=== PATIENT | female | born 1955 | race Hispanic/Latino ===

== ENCOUNTER 2022-01-09 09:07 | Observation (INO) | payer OTHER ==
--- OUTSIDE RECORDS SUMMARY | 2022-01-09 09:11 | XMS REPORT | Continuity of Care Document ---
:1955 Author Organization [facility] t Address [address] [place] [address] Dr. Greg[address] [place] [address] Care Team Providers Name Role Phone Rolando CASAS Primary Care Physician Unavailable CHAPINCITO Attending Clinician Unavailable Chapincito BEY Attending Clinician CHAPINCITO Admitting Clinician Unavailable Payers Payer Name Policy Type Policy Number Effective Date Expiration Date S ource HUMA[employer] CHOICE [id number] 2022 00:00:00 Problems Condition Condition Condition Status Onset Resolution Last Treating Co mments Source Name Details Category Date Date Treatment Clinician Date Marijuana Marijuana Disease Active Uni vers smoker smoker 8-10 ity of 00:: [address] BOUCHRA BOUCHRA Disease Active Univers (obstructi (obstructi 7-13 it y of ve sleep ve sleep 00:00: [place] apnea) apnea) [facility] HTN HTN Disease Active Univers (hypertens (hypertens 7-13 it y of ion) ion) 00:: [address] COPD COPD Disease Active Univers (chronic (chronic 7-13 [place] Medical pulmonary pulmonary Bran ch disease) disease) Hypothyroi Hypothyroi Disease Active U nivers dism dism 7-13 ity of 00:: [address] Depression Depression Disease Active U nivers 7-13 ity of 00:00: [address] Type 2 Type 2 Disease Active Univers diabetes diabetes 7-13 ity of mellitus mellitus 00:00: [address] Allergies, Adverse Reactions, Alerts Allergy Allergy Status Severity Reaction(s) Onset Inactive Treating Comm ents Source Name Type Date Date Clinician NO KNOWN Drug Active Univers ALLERGIE Class ity of S [facility] Social History Social Habit Start Date Stop Date Quantity Comments Source History of tobacco 2005-07-01 Cigarette Smoker University of use 00:00:00 [facility] Exposure to Not sure [facility] SARS-CoV-2 (event) [facility] Cigarettes smoked 2015-07-01 2015-07-01 Univers ity of current (pack per 00:00:00 00:00:00 [facility] ) - Reported Branch Cigarette 2015-07-01 2015-07-01 University of pack-years 00:00:00 00:00:00 [facility] Sex Ass[birth year] Universit y of 00:00:00 00:00:00 [facility] Smoking Status Start Date Stop Date Source Former smoker 2015-07-01 00:00:00 2015-07-01 [facility] Medications Ordered Filled Start Stop Current Ordering Indication Dosage Frequency Signature Comments Components Source Medication Medication Date Date Medication? Clinician (SIG) Name Name metoprolol Yes 25mg Take 25 mg U nivers succinate 8-11 by mouth 2 ity of XL (TOPROL 10:19: (two) [place] XL) 25 mg 44 times Medical 24 hr daily. Branch tablet ALPRAZolam Yes 1mg Take 1 mg Un diamond (XANAX) 1 8-11 by mouth 2 ity of mg tablet 10:19: (two) [place] 44 times Medical daily. Branch PAROXETINE Yes Take by Uni vers HCL (PAXIL 8-11 mouth. ity of ORAL) 10:19: [address] Branch fluticasone Yes Inhale. Uni vers propion/jose m 8-11 ity of meterol 10:19: [place] [facility] IN[facility] Branch INHALE) busPIRone Yes 10mg Take 10 mg Un diamond 10 mg 8-11 by mouth 2 ity of tablet 10:19: (two) [place] 44 times Medical daily. Branch Levothyroxi Yes Take by Un diamond ne 100 mcg 8-11 mouth. ity of capsule 10:19: [place] 44 Medical Branch metFORMIN Yes 500mg Take 500 Uni vers 500 mg 8-11 mg by ity of tablet 10:19: mouth 2 [place] 44 (two) Medical times Branch daily with meals. ibuprofen Yes [id number] 600mg Take 1 Univers 600 mg 8-11 tablet by ity of tablet 00:00: mouth [place] 00 every 6 Medical (six) Branch hours as needed for Pain (scale 1-3). ondansetron Yes 8mg Take 1 Tab Univers (ZOFRAN 9-29 by mouth ity of ODT) 8 mg 00:00: every 8 [place] disintegrat 00 (eight) Medic al ing tablet hours as Branc h needed for Nausea and Vomiting (N/V). Vital Signs Vital Name Observation Time Observation Value Comments Source Systolic blood 2022-01-05 15:35:00 127 [facility]Hg[facility] Diastolic blood 2022-01-05 15:35:00 81 mm[facility]Hg[facility] rate 2022-01-05 15:35:00 87 /min Universi [facility] Body temperature 2022-01-05 15:35:00 36.06 [facility] Procedures This patient has no known procedures. Encounters Start End Encounter Admission Attending Care Care Encounter Source Date/Time Date/Time Type Type Clinicians Facility Department ID 2022-01-06 Inpatient R CHAPINCITO [facility] MARILYN [id number] Univers 13:29:58 [facility] 2021-12-15 [facility] [id number] 14:34:01 [facility] 2022-01-05 2022-01-05 Office [place] [facility] [id number] Univers 10:30:00 11:41:31 Visit David MCCALLUM [id number] i ty [facility] [id number] [place] [id number] [place] [id number] Branch Results This patient has no known results.
[2022-01-09] MEDS ORDERED: AZITHROMYCIN 500 MG INJ IVPB ONE (09:40)
[2022-01-09] MEDS ORDERED: MORPHINE 4 MG/ML SYR ONE (09:40)
[2022-01-09] MEDS ORDERED: CEFTRIAXONE 1000 MG/VIAL ONE ×2 (09:40→19:49)
[2022-01-09] MEDS ORDERED: ONDANSETRON 4 MG/2 ML VIAL ONE (09:40)
[2022-01-09] MEDS ORDERED: NA CHLORIDE 0.9% 2,000 ML ONE (09:41)
[2022-01-09] MEDS ORDERED: NA CHLORIDE 0.9% 250 ML ONE (09:41)
--- NOTE | 2022-01-09 09:42 | RAD REPORT ---
EXAM DESCRIPTION: Jamia Single View01/09/2022 9:31 am CLINICAL HISTORY: sob COMPARISON: 2020 FINDINGS: The lungs appear clear of acute infiltrate. The heart is normal size IMPRESSION: No acute abnormalities displayed
[2022-01-09 09:51] LABS: MPV 7.6 fL (7.6-11.3); Protime INR 1.06
[2022-01-09 10:00] LABS: Absolute Lymphocytes (CBC) 2.2 K/uL (0.7-4.9); Hematocrit 43.3 % (36.0-45.0); Lymphocytes % 31.3 % (15.3-44.8); RBC Red Blood Cell Count 4.98 M/uL (3.86-4.86)
[2022-01-09 10:29] LABS: Albumin 4.7 g/dL (3.4-5.0); Bilirubin Direct 0.2 mg/dL (0-0.2); Bilirubin Total 0.6 mg/dL (0.2-1.0); Magnesium 1.7 mg/dL (1.8-2.4); Potassium 3.5 mmol/L (3.5-5.1); Protein, Total 8.9 g/dL (6.4-8.2); Troponin High Sensitivity 5.2 pg/mL (<58.9)
[2022-01-09] MEDS ORDERED: NA CHLORIDE 0.9% 1,000 ML ONE (10:32)
[2022-01-09] MEDS ORDERED: MAGNESIUM SULFATE 1 gm IVPB 1 GM/100 ML BAG IV ONE (10:52)
--- NOTE | 2022-01-09 10:57 | RAD REPORT ---
EXAM DESCRIPTION: CT - Head Brain Wo Cont - 01/09/2022 10:48 am CLINICAL HISTORY: Headache COMPARISON: None. TECHNIQUE: Computed axial tomography of the head was obtained. IV contrast was not requested. All CT scans are performed using dose optimization technique as appropriate and may include automated exposure control or mA/KV adjustment according to patient size. FINDINGS: An intracranial bleed is not seen . The ventricles are normal in caliber. No significant hypodense areas within the brain No extra-axial fluid collection is noted. Fluid within the sinuses/ mastoids is not seen. IMPRESSION: No acute intracranial abnormality is seen. If patient's symptoms persist MRI of the bra in would be recommended.
--- NOTE | 2022-01-09 11:03 | RAD REPORT ---
EXAM DESCRIPTION: CT - Chest For Pe Angio - 01/09/2022 10:49 am CLINICAL HISTORY: Shortness of breath COMPARISON: None. TECHNIQUE: Dynamically enhanced axial 3 mm thick images of the chest were obtained during administra tion of <100> mL Isovue 370 IV contrast. Coronal and oblique reconstruction images were generated and reviewed. Exam utilizes a protocol for optimal evaluation of pulmonary arterial tree. Maximum intensity projections 3D imaging was utilized All CT scans are performed using dose optimization technique as appropriate and may include automated exposure control or mA/KV adjustment according to patient size. FINDINGS: A pulmonary embolus is not seen. A thoracic aortic aneurysm is not noted. A pleural effusion is not seen. A pericardial effusion is not seen. A lung consolidation is not present. Mild to moderate COPD IMPRESSION: Negative for a pulmonary embolism.
--- NOTE | 2022-01-09 11:54 | EDPHYS ---
Physician Documentation [facility] Name: Celeste Shay Age: 66 yrs Sex: Female : 1955 Arrival Date: 01/09/2022 Time: 09:10 Bed 5 Private MD: ED Physician Atif Enciso HPI: 01/09 09:19 This 66 yrs old Female presents to ER via Unassigned with complaints of kalpana Weakness, Nausea, Shortness Of Breath. 09:19 The patient has shortness of breath at rest. Onset: The symptoms/episode began/occurred kalpana 1 day(s) ago. Duration: The symptoms are continuous, and are steadily getting worse. The patient's shortness of breath has no apparent modifying factors. The patient or guardian reports cough, that is intermittent. Onset: The symptoms/episode began/occurred today. Modifying factors: The symptoms are alleviated by nothing. the symptoms are aggravated by activity. pain all over, sob. Associated signs and symptoms: Pertinent positives: non-productive cough, fever. Severity of symptoms: At their worst the symptoms were moderate in the emergency department the symptoms are unchanged. Associated signs and symptoms: Pertinent positives: nausea, rhinorrhea, sore throat. Historical: - Allergies: :29 No Known Allergies; vg1 - Home Meds: :29 Metformin Oral [Active]; Metoprolol Tartrate Oral [Active]; Buspirone Oral [Active]; vg1 paroxetine oral [Active]; Liver Detox [Active]; albuterol sulfate Oral [Active]; - PMHx: 09:29 Diabetes mellitus; Hypertensive disorder; Chronic obstructive lung disease; Anxiety; vg1 Bipolar disorder; - Immunization history:: Client reports receiving the 2nd dose of the Covid vaccine. - Social history:: Smoking status: Patient reports the use of cigarette tobacco products, smokes one pack cigarettes per day. - Family history:: not pertinent. ROS: 09:19 Constitutional: Negative for fever, chills, and weight loss, Eyes: Negative for injury, kalpana pain, redness, and discharge, ENT: Negative for injury, pain, and discharge, Neck: Negative for injury, pain, and swelling, Cardiovascular: Negative for chest pain, palpitations, and edema, Abdomen/GI: Negative for abdominal pain, nausea, vomiting, diarrhea, and constipation, Back: Negative for injury and pain, : Negative for injury, bleeding, discharge, and swelling, MS/Extremity: Negative for injury and deformity, Skin: Negative for injury, rash, and discoloration, Neuro: Negative for headache, weakness, numbness, tingling, and seizure, Psych: Negative for depression, anxiety, suicide ideation, homicidal ideation, and hallucinations, Allergy/Immunology: Negative for hives, rash, and allergies, Endocrine: Negative for neck swelling, polydipsia, polyuria, polyphagia, and marked weight changes, Hematologic/Lymphatic: Negative for swollen nodes, abnormal bleeding, and unusual bruising. 09:19 Respiratory: Positive for cough, shortness of breath. Exam: 09:19 Constitutional: This is a well developed, well nourished patient who is awake, alert, kalpana and in no acute distress. Head/Face: Normocephalic, atraumatic. Eyes: Pupils equal round and reactive to light, extra-ocular motions intact. Lids and lashes normal. Conjunctiva and sclera are non-icteric and not injected. Cornea within normal limits. Periorbital areas with no swelling, redness, or edema. ENT: Nares patent. No nasal discharge, no septal abnormalities noted. Tympanic membranes are normal and external auditory canals are clear. Oropharynx with no redness, swelling, or masses, exudates, or evidence of obstruction, uvula midline. Mucous membranes moist. Neck: Trachea midline, no thyromegaly or masses palpated, and no cervical lymphadenopathy. Supple, full range of motion without nuchal rigidity, or vertebral point tenderness. No Meningismus. Chest/axilla: Normal chest wall appearance and motion. Nontender with no deformity. No lesions are appreciated. Cardiovascular: Regular rate and rhythm with a normal S1 and S2. No gallops, murmurs, or rubs. Normal PMI, no JVD. No pulse deficits. Respiratory: Lungs have equal breath sounds bilaterally, clear to auscultation and percussion. No rales, rhonchi or wheezes noted. No increased work of breathing, no retractions or nasal flaring. Abdomen/GI: Soft, non-tender, with normal bowel sounds. No distension or tympany. No guarding or rebound. No evidence of tenderness throughout. Back: No spinal tenderness. No costovertebral tenderness. Full range of motion. Skin: Warm, dry with normal turgor. Normal color with no rashes, no lesions, and no evidence of cellulitis. MS/ Extremity: Pulses equal, no cyanosis. Neurovascular intact. Full, normal range of motion. Neuro: Awake and alert, GCS 15, oriented to person, place, time, and situation. Cranial nerves II-XII grossly intact. Motor strength 5/5 in all extremities. Sensory grossly intact. Cerebellar exam normal. Normal gait. Psych: Awake, alert, with orientation to person, place and time. Behavior, mood, and affect are within normal limits. 09:19 Cardiovascular: Rate: tachycardic, Rhythm: regular, Edema: is not appreciated, JVD: is not appreciated. 10:00 ECG was reviewed by the Attending Physician. [facility] Vital Signs: 09:25 BP 183 / 113; Pulse 100; Resp 20; Temp 98.4; Pulse Ox 100% ; Weight 70.76 kg; Height 5 vg1 ft. 2 in. (157.48 cm); Pain 6/10; 09:58 BP 133 / 89; Pulse 90; Resp 16; Pulse Ox 100% ; vg1 10:30 BP 117 / 99; Pulse 83; Resp 15; Pulse Ox 100% ; vg1 11:09 BP 130 / 109; Pulse 80; Resp 17; Pulse Ox 100% ; vg1 12:15 BP 153 / 79; Pulse 73; Resp 12; Pulse Ox 100% ; vg1 13:22 BP 127 / 72; Pulse 78; Resp 15; Pulse Ox 100% ; vg1 14:55 BP 123 / 64; Pulse 76; Resp 20; Pulse Ox 99% on R/A; ph 09:25 Body Mass Index 28.53 (70.76 kg, 157.48 cm) vg1 MDM: 09:13 Patient medically screened. [facility] 09:22 Differential diagnosis: bronchitis, flu, URI, viral Infection, bacterial infection, kalpana URI, bronchitis, pneumonia. Antibiotic administration: Rocephin and Zithromax given. Differential Diagnosis sepsis, flu. The patient's Wells Deep Vein Thrombosis Score was calculated as follows: Heart Rate >100 BPM (1.5 Pts) Total Score: 0-2 Pts- Low Risk. The patient's pulmonary embolism risk score was calculated as follows: the patients heart rate is greater than 100 beats per minute (1.5 Pts) Total Score: 0-2 points. This patient was found to be at low risk for a pulmonary embolism by using the Well's assessment criteria. Immunization status: Pneumococcal vaccine: Influenza vaccine: Data reviewed: vital signs, nurses notes, lab test result(s), EKG, radiologic studies, plain films. Data interpreted: secured entrance monitor: rate is 105 beats/min, rhythm is regular, Pulse oximetry: on room air is 99 %. Test interpretation: by ED physician or midlevel provider: ECG, plain radiologic studies. Counseling: I had a detailed discussion with the patient and/or guardian regarding: the historical points, exam findings, and any diagnostic results supporting the discharge/admit diagnosis, lab results, radiology results, the need for outpatient follow up. 01/09 09:15 Order name: Basic Metabolic Panel; Complete Time: 10:36 [facility] 01/09 09:15 Order name: CBC with Diff; Complete Time: 10:07 [facility] 01/09 09:15 Order name: LFT's; Complete Time: 10:36 [facility] 01/09 09:15 Order name: Magnesium; Complete Time: 10:36 [facility] 01/09 09:15 Order name: NT PRO-BNP; Complete Time: 10:36 [facility] 01/09 09:15 Order name: PT-INR; Complete Time: 10:07 [facility] 01/09 09:15 Order name: Troponin HS; Complete Time: 10:36 [facility] 01/09 09:15 Order name: Blood Culture Adult (2) [facility] 01/09 09:15 Order name: Lactate; Complete Time: 10:23 [facility] 01/09 09:15 Order name: SARS-COV-2 RT PCR (Document "Date of Onset" if Symptomatic); Complete Time: [facility] 11:50 01/09 09:18 Order name: Influenza Screen (a \\T\\ B); Complete Time: 11:50 [facility] 01/09 09:18 Order name: Procalcitonin; Complete Time: 10:36 [facility] 01/09 09:30 Order name: D-Dimer; Complete Time: 10:07 01/09 12:42 Order name: Lactate Sepsis 2 HR Follow-up EDWI 01/09 09:15 Order name: XRAY Chest (1 view); Complete Time: 10:07 [facility] 01/09 10:02 Order name: US Extremity Venous W Compression [place]; Complete Time: 12:06 [facility] 01/09 10:02 Order name: CT Chest For PE Angio; Complete Time: 11:20 [facility] 01/09 10:03 Order name: CT Head Brain wo Cont; Complete Time: 11:02 [facility] 01/09 13:54 Order name: CBC with Automated Diff EDMS 01/09 13:54 Order name: CBC with Automated Diff EDMS 01/09 13:54 Order name: Comprehensive Metabolic Panel EDMS 01/09 13:54 Order name: Comprehensive Metabolic Panel EDMS 01/09 09:15 Order name: EKG; Complete Time: 09:16 [facility] 01/09 09:15 Order name: Cardiac monitoring; Complete Time: 09:58 [facility] 01/09 09:15 Order name: EKG - Nurse/Tech; Complete Time: :58 [facility] 01/09 09:15 Order name: IV Saline Lock; Complete Time: :58 [facility] 01/09 09:15 Order name: Labs collected and sent; Complete Time: 09:58 [facility] 01/09 09:15 Order name: O2 Per Protocol; Complete Time: 09:20 [facility] 01/09 09:15 Order name: O2 Sat Monitoring; Complete Time: 09:20 [facility] 01/09 13:54 Order name: Heart Healthy EDMS EC:00 Rate is 92 beats/min. Rhythm is regular. QRS [place] is Normal. NE interval is normal. QRS kalpana interval is normal. QT interval is normal. No Q waves. T waves are Normal. No ST changes noted. Clinical impression: Normal ECG and No evidence of ischemia. Interpreted by me. Reviewed by me. Administered Medications: 09:45 Drug: NS 0.9% 1000 ml Route: IV; Rate: 125 ml/hr; Site: right antecubital; vg1 15:23 Follow up: IV Status: Infusion continued upon admission vg1 09:45 Drug: NS 0.9% 1000 ml Route: IV; Rate: 1 bolus; Site: right antecubital; vg1 11:39 Follow up: IV Status: Completed infusion; IV Intake: 1000ml vg1 09:46 Drug: Zofran (Ondansetron) 4 mg Route: IVP; Site: right antecubital; vg1 11:38 Follow up: Response: No adverse reaction; Marked relief of symptoms vg1 09:48 Drug: morphine 2 mg Route: IVP; Site: right antecubital; vg1 10:32 Drug: morphine 2 mg Route: IVP; Site: right antecubital; vg1 11:38 Follow up: Response: No adverse reaction; No change in condition vg1 10:33 Drug: Rocephin (cefTRIAXone) 1 grams Route: IV; Rate: per protocol; Site: right vg1 antecubital; 11:38 Follow up: IV Status: Completed infusion vg1 11:02 Drug: NS 0.9% 1000 ml Route: IV; Rate: 1 bolus; Site: right antecubital; vg1 12:22 Follow up: IV Status: Completed infusion; IV Intake: 1000ml vg1 11:05 Drug: Magnesium Sulfate 1 grams Route: IVPB; Infused Over: 1 hrs; Site: right vg1 antecubital; 12:22 Follow up: IV Status: Completed infusion; IV Intake: 100ml vg1 12:22 Drug: Zithromax (azithromycin) 500 mg Route: IVPB; Infused Over: 1 hrs; Site: right vg1 antecubital; 13:25 Follow up: IV Status: Completed infusion; IV Intake: 250ml vg1 Disposition Summary: 01/09/22 11:53 Hospitalization Ordered Hospitalization Status: Observation kalpana Provider: Dorie Garcia cha Location: Telemetry/MedSurg (observation) kalpana Condition: Stable kalpana Problem: new kalpana Symptoms: have improved kalpana Bed/Room Type: Standard [facility] Room Assignment: 206(01/09/22 14:20) eb Diagnosis - Dyspnea kalpana - Weakness kalpana - Chest pain, unspecified kalpana - Hypomagnesemia kalpana Forms: - Medication Reconciliation Form kalpana - SBAR form kalpana Signatures: Dispatcher [employer] Atif Junior MD MD cha Botello, Elizabeth eb Garcia, Victoria RN RN vg1 Corrections: (The following items were deleted from the chart) 14:20 11:53 kalpana eb
--- NOTE | 2022-01-09 11:54 | ER ---
Nurse's Notes [facility] Name: Celeste Shay Age: 66 yrs Sex: Female : 1955 Arrival Date: 01/09/2022 Time: 09:10 Bed 5 Private MD: Diagnosis: Dyspnea;Weakness;Chest pain, unspecified;Hypomagnesemia Presentation: 01/09 09:25 Chief complaint: Patient states: "my brain is weird right now, it feels like jelly, Im vg1 not feeling good, I'm a little crazy I have bipolar and anxitey" Son states pt was nauseous x2 days ago and vomited today; also state "I brought my mom in today bc shes not feeling good and shes crying and wont stop" Pt c/o pain in back, Right shoulder, right arm and left arm, stated at the end of the month will have sx to Left rotator cuff. Coronavirus screen: Vaccine status: Patient reports receiving the 2nd dose of the covid vaccine. Client denies travel out of the [place] in the last 14 days. Ebola Screen: Patient negative for fever greater than or equal to 101.5 degrees Fahrenheit, and additional compatible Ebola Virus Disease symptoms. Onset of symptoms was January 07, 2022. 09:25 Method Of Arrival: Ambulatory vg1 09:25 Acuity: ROSE 3 vg1 09:34 Initial Sepsis Screen: Does the patient meet any 2 criteria? No. Patient's initial vg1 sepsis screen is negative. Does the patient have a suspected source of infection? No. Patient's initial sepsis screen is negative. Risk Assessment: Do you want to hurt yourself or someone else? Patient reports no desire to harm self or others. Triage Assessment: 09:32 General: Appears uncomfortable, Behavior is anxious, crying. Pain: Complains of pain in vg1 back, right arm and left arm Pain currently is 6 out of 10 on a pain scale. Pain began 2-3 days ago. EENT: No signs and/or symptoms were reported regarding the EENT system. Neuro: Level of Consciousness is awake, alert, obeys commands, Oriented to person, place, time, situation. Cardiovascular: Patient's skin is warm and dry. Respiratory: Airway is patent Respiratory effort is even, unlabored. GI: Reports nausea, vomiting. : No signs and/or symptoms were reported regarding the genitourinary system. Derm: Skin is intact, is healthy with good turgor. Musculoskeletal: Circulation, motion, and sensation intact. Historical: - Allergies: : No Known Allergies; vg1 - Home Meds: : Metformin Oral [Active]; Metoprolol Tartrate Oral [Active]; Buspirone Oral [Active]; vg1 paroxetine oral [Active]; Liver Detox [Active]; albuterol sulfate Oral [Active]; - PMHx: : Diabetes mellitus; Hypertensive disorder; Chronic obstructive lung disease; Anxiety; vg1 Bipolar disorder; - Immunization history:: Client reports receiving the 2nd dose of the Covid vaccine. - Social history:: Smoking status: Patient reports the use of cigarette tobacco products, smokes one pack cigarettes per day. - Family history:: not pertinent. Screenin:33 Abuse screen: Denies threats or abuse. Nutritional screening: No deficits noted. vg1 Tuberculosis screening: No symptoms or risk factors identified. Fall Risk No fall in past 12 months (0 pts). No secondary diagnosis (0 pts). IV access (20 points). Ambulatory Aid- None/Bed Rest/Nurse Assist (0 pts). Gait- Normal/Bed Rest/Wheelchair (0 pts) Mental Status- Oriented to own ability (0 pts). Total Lucero Fall Scale indicates No Risk (0-24 pts). Assessment: 09:33 Reassessment: SEE TRIAGE. vg1 10:40 Reassessment: Patient appears in no apparent distress at this time. No changes from vg1 previously documented assessment. Patient and/or family updated on plan of care and expected duration. Pain level reassessed. Patient is alert, oriented x 3, equal unlabored respirations, skin warm/dry/pink. 11:40 Reassessment: Patient appears in no apparent distress at this time. No changes from vg1 previously documented assessment. Patient and/or family updated on plan of care and expected duration. Pain level reassessed. Patient is alert, oriented x 3, equal unlabored respirations, skin warm/dry/pink. 12:23 Reassessment: Patient appears in no apparent distress at this time. Patient and/or vg1 family updated on plan of care and expected duration. Pain level reassessed. Patient is alert, oriented x 3, equal unlabored respirations, skin warm/dry/pink. Pt reports pain in right and left shoulder, states pain is 7/10; provider notified. 13:23 Reassessment: No changes from previously documented assessment. Patient and/or family vg1 updated on plan of care and expected duration. Pain level reassessed. Patient is alert, oriented x 3, equal unlabored respirations, skin warm/dry/pink. States pain in Right and Left shoulder 'comes and goes' Patient states feeling better. 14:20 Reassessment: Patient appears in no apparent distress at this time. Patient and/or vg1 family updated on plan of care and expected duration. Pain level reassessed. Patient is alert, oriented x 3, equal unlabored respirations, skin warm/dry/pink. 15:12 Reassessment: attempted to call report. vg1 Vital Signs: 09:25 BP 183 / 113; Pulse 100; Resp 20; Temp 98.4; Pulse Ox 100% ; Weight 70.76 kg; Height 5 vg1 ft. 2 in. (157.48 cm); Pain 6/10; 09:58 BP 133 / 89; Pulse 90; Resp 16; Pulse Ox 100% ; vg1 10:30 BP 117 / 99; Pulse 83; Resp 15; Pulse Ox 100% ; vg1 11:09 BP 130 / 109; Pulse 80; Resp 17; Pulse Ox 100% ; vg1 12:15 BP 153 / 79; Pulse 73; Resp 12; Pulse Ox 100% ; vg1 13:22 BP 127 / 72; Pulse 78; Resp 15; Pulse Ox 100% ; vg1 14:55 BP 123 / 64; Pulse 76; Resp 20; Pulse Ox 99% on R/A; ph 09:25 Body Mass Index 28.53 (70.76 kg, 157.48 cm) vg1 ED Course: 09:10 Patient arrived in ED. mr 09:13 Atif Enciso MD is Attending Physician. kal[place] 09:20 Tonya Pandya, RN is Primary Nurse. vg1 09:29 Triage completed. vg1 09:32 Arm band placed on. vg1 09:33 XRAY Chest (1 view) In Process Unspecified. EDMS 09:33 Patient has correct armband on for positive identification. Placed in gown. Bed in low vg1 position. Call light in reach. Side rails up X 1. Adult w/ patient. 09:33 Inserted saline lock: 20 gauge in right antecubital area, using aseptic technique. vg1 ,using aseptic technique. Completed by CONSTANTINO teaching music lessons. 10:50 CT Head Brain wo Cont In Process Unspecified. EDMS 10:51 CT Chest For PE Angio In Process Unspecified. EDMS 11:40 US Extremity Venous W Compression Bradley In Process Unspecified. EDMS 11:51 Dorie Garcia MD is Hospitalizing Provider. [place] 15:22 No provider procedures requiring assistance completed. Patient admitted, IV remains in vg1 place. Administered Medications: 09:45 Drug: NS 0.9% 1000 ml Route: IV; Rate: 125 ml/hr; Site: right antecubital; vg1 15:23 Follow up: IV Status: Infusion continued upon admission vg1 09:45 Drug: NS 0.9% 1000 ml Route: IV; Rate: 1 bolus; Site: right antecubital; vg1 11:39 Follow up: IV Status: Completed infusion; IV Intake: 1000ml vg1 09:46 Drug: Zofran (Ondansetron) 4 mg Route: IVP; Site: right antecubital; vg1 11:38 Follow up: Response: No adverse reaction; Marked relief of symptoms vg1 09:48 Drug: morphine 2 mg Route: IVP; Site: right antecubital; vg1 10:32 Drug: morphine 2 mg Route: IVP; Site: right antecubital; vg1 11:38 Follow up: Response: No adverse reaction; No change in condition vg1 10:33 Drug: Rocephin (cefTRIAXone) 1 grams Route: IV; Rate: per protocol; Site: right vg1 antecubital; 11:38 Follow up: IV Status: Completed infusion vg1 11:02 Drug: NS 0.9% 1000 ml Route: IV; Rate: 1 bolus; Site: right antecubital; vg1 12:22 Follow up: IV Status: Completed infusion; IV Intake: 1000ml vg1 11:05 Drug: Magnesium Sulfate 1 grams Route: IVPB; Infused Over: 1 hrs; Site: right vg1 antecubital; 12:22 Follow up: IV Status: Completed infusion; IV Intake: 100ml vg1 12:22 Drug: Zithromax (azithromycin) 500 mg Route: IVPB; Infused Over: 1 hrs; Site: right vg1 antecubital; 13:25 Follow up: IV Status: Completed infusion; IV Intake: 250ml vg1 Intake: 11:39 IV: 1000ml; Total: 1000ml. vg1 12:22 IV: 100ml; Total: 1100ml. vg1 12:22 IV: 1000ml; Total: 2100ml. vg1 13:25 IV: 250ml; Total: 2350ml. vg1 Outcome: 11:53 Decision to Hospitalize by Provider. [place] 15:21 Admitted to Tele accompanied by tech, room 206, with chart, Report called to Katia KELLEY vg1 15:21 Condition: good 15:21 Instructed on the need for admit. 15:33 Patient left the ED. vg1 Signatures: Dispatcher [employer] EDAtif Solomon MD MD cha Rivera, Natalie Degroot, RN RN Tonya Jenkins RN RN vg1 Corrections: (The following items were deleted from the chart) 10:00 09:25 Chief complaint: Patient states: "my brain is weird right now, it feels like vg1 jelly, Im not feeling good, I'm a little crazy I have bipolar and anxitey" Son states pt was nauseous x2 days ago and vomited today; also state "I brought my mom in today bc shes not feeling good and shes crying and wont stop" vg1 13:25 09:25 Chief complaint: Patient states: "my brain is weird right now, it feels like vg1 jelly, Im not feeling good, I'm a little crazy I have bipolar and anxitey" Son states pt was nauseous x2 days ago and vomited today; also state "I brought my mom in today bc shes not feeling good and shes crying and wont stop" Pt c/o pain in back, Right shoulder, right arm and left arm. vg1
--- NOTE | 2022-01-09 11:58 | RAD REPORT ---
EXAM DESCRIPTION: USExtrem Venous W Compress Bil01/09/2022 11:38 am CLINICAL HISTORY: leg pain COMPARISON: none FINDINGS: The common femoral, superficial femoral, popliteal and posterior tibial veins bilaterally are compressible and demonstrate augmentation. Doppler demonstrates good flow. Grayscale, color and spectral analysis performed on all vessels IMPRESSION: No evidence of deep venous thrombosis involving either lower extremity.
[2022-01-09] MEDS ORDERED: ONDANSETRON 4 MG/2 ML VIAL IV PRN (13:50)
[2022-01-09] MEDS ORDERED: ACETAMINOPHEN 500 MG TAB PO PRN (13:50)
--- NOTE | 2022-01-09 15:17 | P.HP ---
Certification for Inpatient Patient admitted to: Observation With expected LOS: <2 Midnights Patient will require the following post-hospital care: None Practitioner: I am a practitioner with admitting privileges, knowledge of patient current condition, hospital course, and medical plan of care. Services: Services provided to patient in accordance with Admission requirements found in Title 42 Section 412.3 of the Code of Federal Regulations Patient History Date of Service: 01/09/22 Reason for admission: Intractable nausea and vomiting; anxiety disorder History of Present Illness: Patient is a 66-year-old female who came to the hospital with intractable nausea and vomiting. Patient is very anxious and also has some shortness of breath. She came into the hospital for further evaluation. Allergies No Known Allergies Allergy (Verified 01/09/22 14:18) - Past Medical/Surgical History Past Medical History: Patient denies medical history Past Surgical History: Patient denies surgical history - Family History Father Family History: Reviewed- Non-Contributory - Social History Smoking Status: Former smoker Alcohol use: No CD- Drugs: No Review of Systems 10-point ROS is otherwise unremarkable Physical Examination - Physical Exam General: Alert, In no apparent distress, Oriented x3 HEENT: Atraumatic, PERRLA, Mucous membr. moist/pink, EOMI, Sclerae nonicteric Neck: Supple, 2+ carotid pulse no bruit, No LAD, Without JVD or thyroid abnormality Respiratory: Clear to auscultation bilaterally, Normal air movement Cardiovascular: Regular rate/rhythm, Normal S1 S2 Gastrointestinal: Normal bowel sounds, No tenderness Musculoskeletal: No tenderness Integumentary: No rashes Neurological: Normal gait, Normal speech, Normal strength at 5/5 x4 extr, Normal tone, Normal affect Lymphatics: No axilla or inguinal lymphadenopathy - Studies Laboratory Data (last 24 hrs) 01/09/22 09:32: PT 11.7, INR 1.06 01/09/22 09:32: WBC 6.9, Hgb 14.8, Hct 43.3, Plt Count 294 01/09/22 09:32: Sodium 134 L, Potassium 3.5, BUN 11, Creatinine 0.82, Glucose 176 H, Magnesium 1.7 L, Total Bilirubin 0.6, AST 17, ALT 29, Alkaline Phosphatase 58 Microbiology Data (last 24 hrs): 01/09/22 09:18 Nasopharnyx Influenza Type A Antigen Screen - Final 01/09/22 09:18 Nasopharnyx Influenza Type B Antigen Screen - Final Assessment & Plan - Problems (Diagnosis) (1) Intractable nausea and vomiting Current Visit: Yes Status: Acute (2) Respiratory distress Current Visit: Yes Status: Acute (3) COPD (chronic obstructive pulmonary disease) Current Visit: Yes Status: Acute - Advance Directives Does patient have a Living Will: No Does patient have a Durable POA for Healthcare: No
[2022-01-09] MEDS: clonazePAM 0.5 MG TAB PO SCH ×2 (15:37→20:51)
[2022-01-09] MEDS: NA CHLORIDE 0.9% 1,000 ML IV SCH (15:37)
[2022-01-09] MEDS: MORPHINE 2 MG/ML SYR IV PRN (15:44)
[2022-01-09 16:17] VITALS: BMI 28.5
[2022-01-09] MEDS: METHYLPREDNISOLONE 40 MG INJ IV SCH (17:15)
[2022-01-09] MEDS ORDERED: NA CHLORIDE 0.9% 50 ML ONE (20:23)
[2022-01-09] MEDS: CEFTRIAXONE 1,000 MG in NA CHLORIDE 0.9% 50 ML IVPB SCH (20:50)
[2022-01-10] MEDS: METHYLPREDNISOLONE 40 MG INJ IV SCH ×2 (00:16→07:54)
[2022-01-10] MEDS: NA CHLORIDE 0.9% 1,000 ML IV SCH (04:21)
[2022-01-10 04:58] VITALS: O2SAT 98
[2022-01-10 06:11] LABS: Lymphocytes % 8.5 % (15.3-44.8); MPV 7.5 fL (7.6-11.3)
[2022-01-10 06:39] LABS: ALT/SGPT 26 U/L (12-78); AST/SGOT 15 U/L (15-37); Albumin 3.8 g/dL (3.4-5.0); Alkaline Phosphatase 49 U/L (45-117); BUN Blood Urea Nitrogen 9 mg/dL (7-18); Bicarbonate 25 mmol/L (21-32); Bilirubin Total 0.3 mg/dL (0.2-1.0); Glucose Level 148 mg/dL (74-106); Potassium 4.1 mmol/L (3.5-5.1); Protein, Total 7.5 g/dL (6.4-8.2); Sodium Level 136 mmol/L (136-145)
[2022-01-10] MEDS: clonazePAM 0.5 MG TAB PO SCH ×2 (07:52→12:59)
[2022-01-10] MEDS: CEFTRIAXONE 1,000 MG in NA CHLORIDE 0.9% 50 ML IVPB SCH (07:55)
[2022-01-10 08:51] LABS: Blood Morphology Comment NOT SEEN (NOT SEEN); Platelet Estimate ADEQ; White Blood Cell Scan OK (OK)
[2022-01-10] MEDS ORDERED: ESCITALOPRAM 20 MG TAB PO SCH (09:00)
[2022-01-10] MEDS: MORPHINE 2 MG/ML SYR IV PRN (13:01)
[2022-01-10 13:56] VITALS: BP 131/63; TEMP 97.6
--- NOTE | 2022-01-11 09:42 | EKG ---
Test Date: 2022-01-09 Test Time: 09:40:50 First Front Ventilator: REJI MEASUREMENT RESULTS: Intervals: Rate: 92 [place]: 134 QRSD: 86 QT: 364 QTc: 450 [place]: P: 70 [place]: 134 QRS: 80 T: 71 INTERPRETIVE STATEMENTS: Normal sinus rhythm Normal ECG No previous ECG available for comparison Electronically Signed On 01-11-22 09:36:11 CDT by Tab Le
== END 2022-01-10 15:04 | disposition home or self-care (01) ==
LOC: ER 09:07 → ERHOLD 13:51 → 2ND 15:16
PROVIDERS: ADMIT Hospitalist; ATTEND Hospitalist
DX: R11.2 Nausea with vomiting, unspecified (principal); R06.03 Acute respiratory distress; J44.9 Chronic obstructive pulmonary disease, unspecified; R07.9 Chest pain, unspecified; E83.42 Hypomagnesemia; F41.9 Anxiety disorder, unspecified; R53.1 Weakness; E11.9 Type 2 diabetes mellitus without complications; I10 Essential (primary) hypertension; F31.9 Bipolar disorder, unspecified; Z87.891 Personal history of nicotine dependence; Z79.84 Long term (current) use of oral hypoglycemic drugs; Z79.899 Other long term (current) drug therapy; Z20.822 Contact with and (suspected) exposure to COVID-19
CPT/HCPCS: 96365; 96367; 96361; 93005; 87040 ×2; 85025 ×2; 80048; 36415; 83735; 85610; 82947 ×4; 85379; 80076; 83605 ×2; 84484; 80053; 84145; 83880; 87804 ×2; 70450; 71275; 71045; 93970; 96375; 99285; U0003; Q9967; J0456; J3475; J2270 ×3; J7050; J7030 ×4; J2405 ×2; J2920 ×3; G0378 ×3

== ENCOUNTER 2022-06-18 06:44 | Day surgery (SDC) | payer OTHER ==
[2022-06-16 11:26] LABS: Absolute Lymphocytes (CBC) 2.1 K/uL (0.7-4.9); Hematocrit 41.6 % (36.0-45.0); Lymphocytes % 24.9 % (15.3-44.8); MCV 87.4 fL (80-100); MPV 7.4 fL (7.6-11.3); RBC Red Blood Cell Count 4.76 M/uL (3.86-4.86)
[2022-06-16 11:33] LABS: Protime INR 1.01
[2022-06-16 11:38] LABS: Potassium 4.7 mmol/L (3.5-5.1)
[2022-06-18] MEDS ORDERED: CEFAZOLIN SODIUM 1 GM/VIAL ONE (07:01)
[2022-06-18] MEDS ORDERED: NA CHLORIDE 0.9% 1,000 ML ONE (07:01)
[2022-06-18] MEDS ORDERED: EPINEPHRINE/PF 1 MG/ML AMP ONE ×2 (07:23→07:35)
[2022-06-18] MEDS ORDERED: FENTANYL CITR 100 MCG/2 ML ONE (07:35)
[2022-06-18] MEDS ORDERED: LIDOCAINE 1% MPF 5 ML VIAL ONE (07:35)
[2022-06-18] MEDS ORDERED: dexAMETHasone 10 MG/ML VIAL ONE ×2 (07:35→08:14)
[2022-06-18] MEDS ORDERED: MIDAZOLAM HCL 2 MG/2 ML INJ ONE (07:35)
[2022-06-18] MEDS ORDERED: ROPLVACAINE HCL 40 ML ONE (07:36)
[2022-06-18] MEDS ORDERED: propofoL 200 MG/20 ML VIAL IV ONE (08:14)
[2022-06-18] MEDS ORDERED: LIDOCAINE 2% MPF 5 ML VIAL ONE (08:14)
[2022-06-18] MEDS ORDERED: KETOROLAC 30 MG/ML INJ ONE (08:14)
[2022-06-18] MEDS ORDERED: VECURONIUM 10 MG/VIAL IV ONE (08:14)
[2022-06-18] MEDS ORDERED: NS 0.9% VIAL 10 ML ONE ×3 (08:14→08:49)
[2022-06-18] MEDS ORDERED: ONDANSETRON 4 MG/2 ML VIAL ONE (08:15)
[2022-06-18] MEDS ORDERED: EPHEDRINE SULF 50 MG/ML VIAL ONE (08:27)
[2022-06-18] MEDS ORDERED: Phenylephrine HCl 10 MG/ML 1 ML VIAL ONE (08:45)
[2022-06-18] MEDS ORDERED: NEOSTIGMINE 1 MG/ML -10 ML VIAL ONE (10:39)
[2022-06-18] MEDS ORDERED: GLYCOPYRROLATE 0.2 MG/ML SYR ONE (10:39)
--- NOTE | 2022-06-18 10:43 | P.BOP ---
Preoperative diagnosis: left rotator cuff tear, biceps tenosynovitis, impingement syndrome Postoperative diagnosis: same Primary procedure: left shoulder arthroscopic rotator cuff repair Secondary procedure: left shoulder arthroscopic biceps tenotomy Other procedure(s): left shoulder arthroscopic subacromial decompression Estimated blood loss: 10 cc Specimen: none Findings: see dictation Anesthesia: General Complications: None Implants: 1- 5.5 mm Arthrex corkscrew, 2- 4.75 mm Arthrex swivelock Fluids & blood products: per anesthesia record Transferred to: Recovery Room Condition: Good
[2022-06-18] MEDS ORDERED: Ringers Lactate 1,000 ML IV ONE (11:03)
[2022-06-18 11:55] VITALS: O2SAT 97
--- NOTE | 2022-06-18 12:23 | RAD REPORT ---
EXAM DESCRIPTION: RAD - Shoulder Left 2 View - 06/18/2022 11:35 am CLINICAL HISTORY: s/p rotator cuff repair COMPARISON: No comparisons TECHNIQUE: Internal and external rotation views of the left shoulder were obtained. Scapula Y-view a lso obtained. FINDINGS: Patient is status post rotator cuff repair by provided history. Edema in the soft tissues is seen. Several air densities are present within or adjacent to the joint, all expected for surgical procedure performed. No fracture or dislocation. AC joint is unremarkable. No foreign body. IMPRESSION: Left shoulder postop three-view examination showing no suspicious or unexpected finding.
[2022-06-18 13:51] VITALS: BP 154/75; TEMP 97.4
== END 2022-06-18 12:33 | disposition home or self-care (01) ==
LOC: OR 06:44
PROVIDERS: ATTEND Orthopaedic Surgery Sports Medicine
PROC: 0RNK4ZZ Release Left Shoulder Joint, Percutaneous Endoscopic Approach (ICD-10-PCS; 2022-06-18)
PROC: 0LM24ZZ Reattachment of Left Shoulder Tendon, Percutaneous Endoscopic Approach (ICD-10-PCS; principal; 2022-06-18 08:00)
DX: M75.122 Complete rotator cuff tear or rupture of left shoulder, not specified as traumatic (principal); M75.22 Bicipital tendinitis, left shoulder; M75.42 Impingement syndrome of left shoulder; M25.512 Pain in left shoulder; I10 Essential (primary) hypertension; E03.9 Hypothyroidism, unspecified; E78.00 Pure hypercholesterolemia, unspecified
CPT/HCPCS: 85025; 80048; 36415; 85610; 82947; 85730; 73030; 29827; 29826; J2704; J2710; J0171 ×2; J2001 ×2; J2370; J2250; J3010; J1100 ×2; J2795; A4216 ×3; J7120; J7030; J2405; J0690

== ENCOUNTER 2025-07-26 15:37 | Emergency (ER) | payer OTHER ==
[2025-07-26 16:20] LABS: Absolute Lymphocytes (CBC) 3.1 K/uL (0.7-4.9); Hematocrit 46.8 % (36.0-45.0); Hemoglobin 16.1 g/dL (12.0-15.0); MCH 29.9 pg (27.0-35.0); MCHC 34.4 g/dL (32.0-36.0); MCV 86.9 fL (80-100); MPV 6.4 fL (7.6-11.3); Nucleated RBC Absolute Count 0.0 (0-0); Nucleated Red Blood Cells % 0.1 % (0-0); RBC Red Blood Cell Count 5.38 M/uL (3.86-4.86); White Blood Count 11.60 thou/uL (4.3-10.9)
[2025-07-26 16:26] LABS: PT Prothrombin Time 11.8 SECONDS (10-13.0); Protime INR 1.05
[2025-07-26 16:39] LABS: ALT/SGPT 47.0 U/L (13-56); AST/SGOT 23.0 U/L (15-37); Albumin 4.4 g/dL (3.4-5.0); Albumin/Globulin Ratio 1.1 (1.1-1.8); Alkaline Phosphatase 62.0 U/L (45-117); Anion Gap 12.7 mEq/L (5.0-15.0); BUN Blood Urea Nitrogen 12.0 mg/dL (7-18); Bilirubin Indirect, Calculated 0.4 mg/dL (0.2-0.8); Globulin 4.0 g/dL (2.3-3.5); Glucose Level 128.0 mg/dL (74-106); Magnesium 1.9 mg/dL (1.6-2.4); NT PRO-BNP 113.0 pg/mL (<125); Potassium 3.7 mEq/L (3.5-5.1); Troponin High Sensitivity 5.3 pg/mL (<58.9)
[2025-07-26 16:40] LABS: Influenza A Ag Negative; Influenza B Ag Negative; SARS-CoV-2 Antigen Rapid Res Negative (Negative)
[2025-07-26 16:44] LABS: Thyroid Stimulating Hormone 4.55 uIU/mL (0.358-3.740)
--- NOTE | 2025-07-26 17:28 | RAD REPORT ---
EXAM: Chest Single View HISTORY: 69 years Female DYSPNEA COMPARISON: 05/25/2023 FINDINGS: LUNGS/PLEURA: The lungs are clear. No pleural effusions or pneumothorax. No pulmonary edema. CARDIAC/MEDIASTINUM: The cardiac silhouette is within normal limits. Hyperexpanded lungs probably rep resenting emphysema. UPPER ABDOMEN: No significant abnormality. BONES: No acute abnormality. LINES/TUBES/OTHER: N/A IMPRESSION: No evidence of acute cardiopulmonary disease.
--- NOTE | 2025-07-26 17:38 | EDPHYS ---
Physician Documentation [facility] Name: Celeste Shay Age: 69 yrs Sex: Female : 1955 Arrival Date: 07/26/2025 Time: 15:37 Bed 3 Private MD: ED Physician Ulysses Payan HPI: 07/26 16:10 This 69 yrs old Female presents to ER via Wheelchair with complaints of sp3 Shortness Of Breath, General Weakness. 16:10 69-year-old female with history of bipolar disease, COPD, diabetes, hypertension, sp3 hypothyroidism presents to the ED for "I cannot live like this anymore" states she has been off all of her medications and just needs "help". She denies any specific symptoms other than being tired. She denies SI, HI, psychosis or any other psychiatric presentation. ROS negative for headache, chest pain, shortness of breath, abdominal pain, vomiting, diarrhea, or any other signs or symptoms on ROS at this time.. Historical: - Allergies: 15:52 No Known Allergies; me1 - PMHx: 15:52 Anxiety; Bipolar disorder; Chronic obstructive lung disease; diabetes mellitus; me1 Hypertensive disorder; Hypothyroidism; - PSHx: 15:52 shoulder surgery; section; me1 - Immunization history:: Adult Immunizations up to date. - Infectious Disease History:: Denies. - Social history:: Smoking status: Patient denies any tobacco usage or history of. ROS: 16:13 Constitutional: Negative for fever, chills, and weight loss, Eyes: Negative for injury, sp3 pain, redness, and discharge, Cardiovascular: Negative for chest pain, palpitations, and edema, Respiratory: Negative for shortness of breath, cough, wheezing, and pleuritic chest pain, Abdomen/GI: Negative for abdominal pain, nausea, vomiting, diarrhea, and constipation, Back: Negative for injury and pain, MS/Extremity: Negative for injury and deformity, Skin: Negative for injury, rash, and discoloration, 16:13 All other systems are negative, Exam: 16:13 Constitutional: This is a well developed, well nourished patient who is awake, alert, sp3 and in no acute distress. Head/Face: Normocephalic, atraumatic. ENT: Nares patent. No nasal discharge, no septal abnormalities noted. External auditory canals are clear. Oropharynx with no redness, swelling, or masses, exudates, or evidence of obstruction, uvula midline. Mucous membranes moist. Chest/axilla: Normal chest wall appearance and motion. Nontender with no deformity. No lesions are appreciated. Cardiovascular: Regular rate and rhythm with a normal S1 and S2. No gallops, murmurs, or rubs. Normal PMI, no JVD. No pulse deficits. Respiratory: Lungs have equal breath sounds bilaterally, clear to auscultation and percussion. No rales, rhonchi or wheezes noted. No increased work of breathing, no retractions or nasal flaring. Abdomen/GI: Soft, non-tender, with normal bowel sounds. No distension or tympany. No guarding or rebound. No evidence of tenderness throughout. Back: No spinal tenderness. No costovertebral tenderness. Full range of motion. Skin: Warm, dry with normal turgor. Normal color with no rashes, no lesions, and no evidence of cellulitis. MS/ Extremity: Pulses equal, no cyanosis. Neurovascular intact. Full, normal range of motion. Neuro: Awake and alert, GCS 15, oriented to person, place, time, and situation. Cranial nerves II-XII grossly intact. Motor strength 5/5 in all extremities. Sensory grossly intact. Cerebellar exam normal. Normal gait. 16:13 Psych: Patient dramatic in wheelchair changing from [id number] stating that she does not know if "she can live like this". Vital signs are normal with pulse rate 96 on my exam.. 16:40 ECG was reviewed by the Attending Physician. EKG demonstrates sinus tachycardia 103 bpm sp3 with normal intervals, normal QRS, normal axis and normal ST/T-segment's without evidence of acute ischemia. Vital Signs: 15:48 BP 151 / 109; Pulse 104; Resp 20; Temp 98; Pulse Ox 100% ; Weight 58.97 kg; Height 5 me1 ft. 2 in. ; 18:02 BP 114 / 72; Pulse 80; Resp 16; Pulse Ox 98% on R/A; ap3 15:48 Body Mass Index 23.78 (58.97 kg, 157.48 cm) me1 MDM: 15:44 Medical Screening Exam initiated sp3 16:14 Data reviewed: vital signs, nurses notes, old medical records, lab test result(s), EKG, sp3 radiologic studies. ED course: 69-year-old female presents with vague symptoms. Differential diagnosis includes manic episode, other bipolar related complication, delirium, electrolyte disturbance, dehydration, to lesser degree thyroid storm or other process. We will obtain cardiac workup, TSH and viral swabs. If full workup negative, we will safely discharge patient home. I have explained all of this to her and she is amenable to the plan.. 17:36 ED course: Full workup negative. TSH is elevated as expected due to her not taking her sp3 medication. She states she is back on it. Sodium slightly low. Remainder of workup fully negative. We will safely discharge patient home. Vital signs are stable. Heart rate 90 on discharge.. 07/26 15:44 Order name: Basic Metabolic Panel; Complete Time: 17:02 sp3 07/26 15:44 Order name: CBC with Diff; Complete Time: 17:02 sp3 07/26 15:44 Order name: LFT's; Complete Time: 17:02 sp3 07/26 15:44 Order name: Magnesium; Complete Time: 17:02 sp3 07/26 15:44 Order name: NT PRO-BNP; Complete Time: 17:02 sp3 07/26 15:44 Order name: PT-INR; Complete Time: 17:02 sp3 07/26 15:44 Order name: Troponin HS; Complete Time: 17:02 sp3 07/26 15:44 Order name: COVID-19 Ag + Flu A+B Ag; Complete Time: 17:02 sp3 07/26 15:58 Order name: TSH; Complete Time: 17:02 sp3 07/26 16:47 Order name: T4 Free; Complete Time: 17:02 EDMS 07/26 15:44 Order name: XRAY Chest (1 view); Complete Time: 17:34 sp3 07/26 15:44 Order name: EKG; Complete Time: 15:45 sp3 07/26 15:44 Order name: Cardiac monitoring; Complete Time: 18:00 sp3 07/26 15:44 Order name: EKG - Nurse/Tech; Complete Time: 16:14 sp3 07/26 15:44 Order name: IV Saline Lock; Complete Time: 16:14 sp3 07/26 15:44 Order name: Labs collected and sent; Complete Time: 16:14 sp3 07/26 15:44 Order name: O2 Per Protocol; Complete Time: 18:00 sp3 07/26 15:44 Order name: O2 Sat Monitoring; Complete Time: 18:00 sp3 Administered Medications: No medications were administered Disposition Summary: 07/26/25 17:37 Discharge Ordered Notes: Location: Home sp3 Condition: Stable sp3 Diagnosis - Suha, hypothyroidism, medication noncompliance sp3 Followup: sp3 - With: Private Physician - When: Upon discharge from the Emergency Department - Reason: Continuance of care Discharge Instructions: - Discharge Summary Sheet sp3 - Hypothyroidism sp3 - Suha sp3 Forms: - Medication Reconciliation Form sp3 - Antibiotic Education sp3 - Prescription Opioid Use sp3 - Patient Portal Instructions sp3 - Leadership Thank You Letter sp3 Signatures: Dispatcher [employer] Ulysses Yao MD MD sp3 Katherine Fang, RN RN me1
--- NOTE | 2025-07-26 17:38 | ER ---
Nurse's Notes [facility] Name: Celeste Shay Age: 69 yrs Sex: Female : 1955 Arrival Date: 07/26/2025 Time: 15:37 Bed 3 Private MD: Diagnosis: Suha, hypothyroidism, medication noncompliance Presentation: 07/26 15:48 Chief complaint: Patient states: she has generalized weakness, SOB, cries all the time, me1 has body aches and chills and episodes of sweating for the past 3-4 days. States she hasnt been taking her thyroid medication. Unsure when she took it before today. Coronavirus screen: Vaccine status: Patient reports receiving the 2nd dose of the covid vaccine. Ebola Screen: No symptoms or risks identified at this time. Initial Sepsis Screen: Does the patient meet any 2 criteria? HR > 90 bpm. Does the patient have a suspected source of infection? No. Patient's initial sepsis screen is negative. Risk Assessment: Do you want to hurt yourself or someone else? Patient reports no desire to harm self or others. Onset of symptoms is unknown. 15:48 Method Of Arrival: Wheelchair me1 15:48 Acuity: ROSE 3 me1 Historical: - Allergies: 15:52 No Known Allergies; me1 - PMHx: 15:52 Anxiety; Bipolar disorder; Chronic obstructive lung disease; diabetes mellitus; me1 Hypertensive disorder; Hypothyroidism; - PSHx: 15:52 shoulder surgery; section; me1 - Immunization history:: Adult Immunizations up to date. - Infectious Disease History:: Denies. - Social history:: Smoking status: Patient denies any tobacco usage or history of. Screenin:00 [facility] ED Fall Risk Assessment (Adult) History of falling in the last 3 months, ap3 including since admission No falls in past 3 months (0 pts) Confusion or Disorientation No (0 pts) Intoxicated or Sedated No (0 pts) Impaired Gait No (0 pts) Mobility Assist Device Used No (0 pt) Altered Elimination No (0 pt) Score/Fall Risk Level 0 - 2 = Low Risk Oriented to surroundings, Maintained a safe environment, Educated pt \T\ family on fall prevention, incl call for assistance when getting out of bed, Assessed \T\ reinforced patient's understanding of fall precautions, Hourly rounding (assess needs \T\ fall precautionary measures) done, Used ambulatory aids as needed (educated on \T\ assisted with). Abuse screen: Denies threats or abuse. Nutritional screening: No deficits noted. Tuberculosis screening: No symptoms or risk factors identified. Assessment: 18:00 Cardiovascular: Patient's skin is warm and dry. Respiratory: Airway is patent ap3 Respiratory effort is even, unlabored, Respiratory pattern is regular, symmetrical. 18:01 General: Appears in no apparent distress. Behavior is calm, cooperative, appropriate ap3 for age, restless. Pain: Denies pain. Neuro: Level of Consciousness is awake, alert, obeys commands, Oriented to person, place, time, situation, Appropriate for age Gait is standby assist. Speech is normal. Vital Signs: 15:48 BP 151 / 109; Pulse 104; Resp 20; Temp 98; Pulse Ox 100% ; Weight 58.97 kg; Height 5 me1 ft. 2 in. ; 18:02 BP 114 / 72; Pulse 80; Resp 16; Pulse Ox 98% on R/A; ap3 15:48 Body Mass Index 23.78 (58.97 kg, 157.48 cm) oh1 ED Course: 15:39 Patient arrived in ED. im 15:39 Ulysses Payan MD is Attending Physician. sp3 15:43 Client placed on continuous cardiac and pulse oximetry monitoring. NIBP monitoring ap3 applied. bus monitor on. Pulse ox on. NIBP on. 15:51 Triage completed. me1 15:52 Arm band placed on Patient placed in waiting room. me1 16:14 TSH Sent. bc6 16:14 COVID-19 Ag + Flu A+B Ag Sent. bc6 16:14 Basic Metabolic Panel Sent. bc6 16:15 CBC with Diff Sent. bc6 16:15 LFT's Sent. bc6 16:15 Troponin HS Sent. bc6 16:15 Magnesium Sent. bc6 16:15 NT PRO-BNP Sent. bc6 16:15 PT-INR Sent. bc6 16:15 Initial lab(s) drawn, by me, sent to lab. Inserted saline lock: 20 gauge in right bc6 antecubital area, using aseptic technique. Blood collected. Flushed with 10 mL NS. 17:17 XRAY Chest (1 view) In Process Unspecified. EDMS 18:01 No provider procedures requiring assistance completed. IV discontinued, intact, ap3 bleeding controlled, No redness/swelling at site. Pressure dressing applied. 18:02 Patient has correct armband on for positive identification. Bed in low position. Call ap3 light in reach. Side rails up X2. Adult w/ patient. Provided Education on: discharge instructions. Administered Medications: No medications were administered Medication: 18:03 VIS not applicable for this client. ap3 Outcome: 17:37 Discharge ordered by . sp3 18:01 Discharged to home ambulatory, with family, ap3 18:01 Condition: good 18:01 Discharge instructions given to patient, family, Instructed on discharge instructions, follow up and referral plans. Demonstrated understanding of instructions, follow-up care, 18:03 Patient left the ED. ap3 Signatures: Dispatcher [employer] Geetha Juares RN RN ap3 Ulysses Payan MD MD sp3 Darya Aguillon 6 Ludmila Torres Michelle, RN RN me1 Corrections: (The following items were deleted from the chart) 15:53 15:48 BP 146 / 122; Pulse 104bpm; Resp 20bpm; Pulse Ox 100%; Temp 98F; 58.97 kg; Height me1 5 ft. 2 in.; BMI: 23.7; me1
[2025-07-26 23:18] VITALS: TEMP 98
[2025-07-26 23:24] VITALS: BP 114/72; O2SAT 98
== END 2025-07-26 18:03 | disposition home or self-care (01) ==
LOC: ER 15:37
DX: F30.9 Manic episode, unspecified (principal); E03.9 Hypothyroidism, unspecified; Z91.148 Patient's other noncompliance with medication regimen for other reason; R53.1 Weakness; R06.02 Shortness of breath; Z11.52 Encounter for screening for COVID-19
CPT/HCPCS: 36415; 71045; 80048; 80076; 83735; 83880; 84439; 84443; 84484; 85025; 85610; 87428; 93005; 99284